=== PATIENT | female | born 1945 | race Caucasian/White ===

== ENCOUNTER 2016-11-25 17:08 | Emergency (ER) | payer MEDICARE, MEDICAID ==
[2016-11-25 17:27] VITALS: BP 175/72; PULSE 64; RESP 16; TEMP 98.4; O2SAT 98
--- NOTE | 2016-11-25 17:36 | C.PDOC ---
- HPI Chief Complaint (Nursing): Trauma Past Medical History Vital Signs: Last Vital Signs Temp 98.4 F 11/25/16 17:27 Pulse 64 11/25/16 17:27 Resp 16 11/25/16 17:27 BP 175/72 H 11/25/16 17:27 Pulse Ox 98 11/25/16 17:27 - Medical History PMH: Arthritis, Asthma, Cardia Arrhythmia, Diabetes, HTN, Hypercholesterolemia Denies: Chronic Kidney Disease - [facility] Procedures DILATION OF 1 COR ART WITH DRUG-ELUT INTRALUM, PERC APPROACH (11/19/15) FLUOROSCOPY OF LEFT HEART USING LOW OSMOLAR CONTRAST (11/19/15) MEASURE OF CARDIAC SAMPL & PRESSURE, L HEART, PERC APPROACH (11/19/15) Family History: States: Unknown Family Hx - Social History Hx Tobacco Use: No Hx Alcohol Use: No Hx Substance Use: No - Immunization History Hx Tetanus Toxoid Vaccination: No Hx Influenza Vaccination: Yes Hx Pneumococcal Vaccination: No ED Course And Treatment O2 Sat by Pulse Oximetry: 98 Disposition - Disposition Forms: [employer] [facility] (Lux[place]bourgish)
[2016-11-25] MEDS ORDERED: Acetaminophen 650mg/20.3ml solution UD PO STA (17:52)
[2016-11-25] MEDS ORDERED: Acetaminophen 650mg/20.3ml solution UD ONE (18:02)
--- NOTE | 2016-11-25 18:24 | RAD ---
PROCEDURE: Right Knee Radiographs. HISTORY: fall 4 days ago COMPARISON: None. FINDINGS: BONES: No evidence of acute fracture. JOINTS: Moderate to severe osteoarthritic changes. JOINT EFFUSION: None. OTHER FINDINGS: None. IMPRESSION: Severe osteoarthritic changes. No evidence of acute fracture or dislocation.
[2016-11-25 18:54] LABS: BASO # 0.1 K/uL (0.0-0.2); BASO % 1.2 % (0.0-2.0); EOS # 0.1 K/uL (0.0-0.7); EOS % 1.2 % (0.0-4.0); HEMATOCRIT 35.8 % (34.0-47.0); LYMPH # 2.5 K/uL (1.0-4.3); LYMPH % 31.5 % (20.0-40.0); MEAN CELL VOLUME 76.2 fL (81.0-99.0); MEAN CORPUSCULAR HGB CONC 32.7 g/dL (33.0-37.0); MEAN PLATELET VOLUME 8.3 fL (7.2-11.7); MONO # 0.8 K/uL (0.0-0.8); MONO % 10.3 % (0.0-10.0); NRBC % 0.1 % (0.0-2.0); RED CELL DISTRIBUTION WIDTH 16.7 % (11.5-14.5)
[2016-11-25 19:02] LABS: INR 1.4
[2016-11-25 19:05] LABS: CHLORIDE 103 mmol/L (98-107); POTASSIUM 4.7 mmol/L (3.6-5.2); SODIUM 138 mmol/L (132-148)
[2016-11-25 19:08] LABS: ALB/GLOB RATIO 1.1 (1.0-2.1); ALKALINE PHOSPHATASE 46 U/L (38-126); ALT/SGPT 38 U/L (9-52); AST/SGOT 36 U/L (14-36); BILIRUBIN,TOTAL 0.6 mg/dL (0.2-1.3); BLOOD UREA NITROGEN 26 mg/dL (7-17); CALCIUM 8.9 mg/dl (8.6-10.4); CARBON DIOXIDE 24 mmol/L (22-30); GFR AFRICAN-AMERICAN > 60; GLUCOSE,RANDOM 211 mg/dL (65-105); TOTAL PROTEIN 7.5 g/dL (6.3-8.3)
[2016-11-25] MEDS ORDERED: Iodixanol 320 MG/ML 100 ML BOTTLE IV ONE (19:23)
--- NOTE | 2016-11-25 20:34 | CT ---
EXAM: CT Right Lower Extremity With Intravenous Contrast, Tibia and Fibula EXAM DATE/TIME: Exam ordered 11/25/2016 6:00 PM CLINICAL HISTORY: 71 years old, female; Injury or trauma; Fall; Initial encounter; Blunt trauma; Lower leg; Right; Injury details: Pt on coumadin, bruising to medial side of right lower leg, exam was done pre and post contrast as per dr houser; Additional info: ? Hemarthrosis, infrapatellar hematoma on coumadin TECHNIQUE: Axial computed tomography images of the right tibia and fibula with intravenous contrast. All CT scans at this facility use one or more dose reduction techniques, viz.: automated exposure control; ma/kV adjustment per patient size (including targeted exams where dose is matched to indication; i.e. head); or iterative reconstruction technique. Coronal and sagittal reformatted images were created and reviewed. CONTRAST: 100 mL of visipaque administered intravenously. COMPARISON: CT - ABD PELVIS PO CONTRAST ONLY 05/01/2015 10:23:55 AM FINDINGS: Bones/joints: There is narrowing of the patellofemoral joint. Marginal osteophytes border the joint. There is narrowing of the medial and lateral compartment of the knee joint. There is more severe narrowing of the lateral compartment. Subchondral cyst formation and subchondral sclerosis is noted laterally. Marginal osteophytes border the lateral and medial compartments of the knee joint. There is spurring of the tibial spines. Subchondral cyst formation is noted along the subarticular portion of the patella. Traction osteophyte is noted on the superior Patella at the quadriceps tendon insertion site. There is a plantar calcaneal spur. There is a spur on the dorsal aspect of the calcaneus at the Achilles tendon insertion site. No acute fracture. No dislocation. Soft tissues: There is a trace amount of fluid noted in the suprapatellar bursa. There is stranding of the subcutaneous fat anteriorly noted over the tibial diaphysis at the level the proximal one third. Mild soft tissue swelling is suggested over the medial malleolus extending onto the heel of the foot. IMPRESSION: 1. Mild soft tissue swelling noted over the proximal tibia and medially over the ankle and hindfoot. No hematoma/fluid collection noted. 2. Moderate to severe osteoarthritis involving all 3 compartments of the knee joint. No significant joint effusion.
--- NOTE | 2016-11-25 20:43 | C.PDOC ---
History Of Present Illness 71 year old female who presents to the ER with a complaint of tenderness and swelling below the right knee for the past 10 days. Patient states she banged her loza her bath tube at home approximately 10 days ago. Patient is currently on Coumadin for a Hx of CVA. Denies weakness or numbness. Time Seen by Provider: 11/25/16 17:40 Chief Complaint (Nursing): Trauma History Per: Patient History/Exam Limitations: no limitations Onset/Duration Of Symptoms: Days Current Symptoms Are (Timing): Still Present Recent travel outside of the [place] States: No Past Medical History Reviewed: Historical Data, Nursing Documentation, Vital Signs Vital Signs: Last Vital Signs Temp 98.4 F 11/25/16 17:27 Pulse 64 11/25/16 17:27 Resp 16 11/25/16 17:27 BP 175/72 H 11/25/16 17:27 Pulse Ox 98 11/25/16 20:53 - Medical History PMH: Arthritis, Asthma, Cardia Arrhythmia, Diabetes, HTN, Hypercholesterolemia - [facility] Procedures DILATION OF 1 COR ART WITH DRUG-ELUT INTRALUM, PERC APPROACH (11/19/15) FLUOROSCOPY OF LEFT HEART USING LOW OSMOLAR CONTRAST (11/19/15) MEASURE OF CARDIAC SAMPL & PRESSURE, L HEART, PERC APPROACH (11/19/15) Family History: States: Unknown Family Hx - Social History Hx Tobacco Use: No Hx Alcohol Use: No Hx Substance Use: No - Immunization History Hx Tetanus Toxoid Vaccination: No Hx Influenza Vaccination: Yes Hx Pneumococcal Vaccination: No Review Of Systems Constitutional: Negative for: Fever, Chills Musculoskeletal: Positive for: Leg Pain Neurological: Negative for: Weakness, Numbness Physical Exam - Physical Exam Appears: Non-toxic, No Acute Distress Skin: Warm, Dry Head: Atraumatic, Normacephalic Oral Mucosa: Moist Chest: Symmetrical, No Tenderness Cardiovascular: Rhythm Regular, No Murmur Respiratory: Normal Breath Sounds, No Rales, No Rhonchi, No Wheezing Extremity: Normal ROM (x4), No Pedal Edema, Other (Small 4x6cm hematoma to the medial aspect of the upper loza below the right knee. Discoloration and ecchymosis traveling down tibia and pooling by medial malleolus. Negative homans sign.) Pulses: Left Dorsalis Pedis: Normal, Right Dorsalis Pedis: Normal Neurological/Psych: Oriented x3, Normal Speech, Normal Cognition, Normal Motor, Normal Sensation Gait: Steady ED Course And Treatment - Laboratory Results Result Diagrams: 11/25/16 18:49 11/25/16 18:49 Lab Interpretation: Abnormal (INR 1.4 (below therputic for h/o CVA), pmd aware) ECG: Interpreted By Me ECG Rhythm: Sinus Rhythm ECG Interpretation: Normal Rate From EC O2 Sat by Pulse Oximetry: 98 Pulse Ox Interpretation: Normal - Radiology CXR: Interpreted by Me CXR Interpretation: Yes: No Acute Disease - CT Scan/US CT Right Lower Extremity Other Rad Studies (CT/US): Read By Radiologist, Radiology Report Reviewed CT/US Interpretation: IMPRESSION: 1. Mild soft tissue swelling noted over the proximal tibia and medially over the ankle and hindfoot. No. hematoma/fluid collection noted. 2. Moderate to severe osteoarthritis involving all 3 compartments of the knee joint. No significant joint effusion. Progress Note: EKG, blood work, CXR, and right lower extremity CT ordered. Reevaluation Time: 20:49 Reassessment Condition: Improved - Physician Consult Information Outcome Of Conversation: 1700, 2030, d/w pt's Son Dr. Molian, results reviewed, ok to d/c home. benign contusion, ok for d/c with normal gait. Medical Decision Making Medical Decision Making: benign contusion BELOW the R knee 10 days ago, resolving small hematoma and ecchymosis down the loza to heel area c/w chronic resolving hematoma. no direct knee trauma and no hemarthrosis- low prob as no KNEE trauma and INR subtheraputic 1.4 Disposition Doctor Will See Patient In The: Office Counseled Patient/Family Regarding: Studies Performed, Diagnosis - Disposition Referrals: [facility] [Outside] [facility] [Outside] Julito Molina MD [Staff Provider] - Disposition: HOME/ ROUTINE Disposition Time: 20:51 Condition: GOOD Additional Instructions: contusion INR 1.4 Instructions: Contusion in Adults (ED) Forms: [facility] (Italian) - Clinical Impression Clinical Impression: Contusion, Hematoma - Scribe Statement The provider has reviewed the documentation as recorded by the Scribe Alexander Baird All medical record entries made by the Scribe were at my direction and personally dictated by me. I have reviewed the chart and agree that the record accurately reflects my personal performance of the history, physical exam, medical decision making, and the department course for this patient. I have also personally directed, reviewed, and agree with the discharge instructions and disposition.
--- NOTE | 2016-11-26 08:38 | RAD ---
PROCEDURE: CHEST RADIOGRAPH, 1 VIEW HISTORY: SOB COMPARISON: Comparison is made to 11/23/2015 FINDINGS: LUNGS: No evidence of new infiltrate or consolidation in the lungs. PLEURA: No pneumothorax or pleural fluid seen. CARDIOVASCULAR: Normal. OSSEOUS STRUCTURES: No significant abnormalities. VISUALIZED UPPER ABDOMEN: Normal. OTHER FINDINGS: None. IMPRESSION: No active disease.
--- NOTE | 2016-11-28 22:33 | CARD ---
APPROVED REPORT EKG Measurement Heart [id number] <Conclusion> Sinus bradycardia Inferior infarct, age undetermined Abnormal ECG
== END 2016-11-25 20:59 | disposition home or self-care (01) ==
LOC: C.ER 17:08
DX: S80.01XA Contusion of right knee, initial encounter (principal); W22.8XXA Striking against or struck by other objects, initial encounter; Y93.E1 Activity, personal bathing and showering; Y92.002 Bathroom of unspecified non-institutional (private) residence as the place of occurrence of the external cause; I10 Essential (primary) hypertension; E11.9 Type 2 diabetes mellitus without complications; Z86.73 Personal history of transient ischemic attack (TIA), and cerebral infarction without residual deficits; Z79.01 Long term (current) use of anticoagulants
CPT/HCPCS: 71010; 73562; 73701; 80053; 83880; 84484; 85025; 85610; 85730; 93005; 99284; Q9967